=== PATIENT | female | born 1980 | race Caucasian/White ===

== ENCOUNTER 2017-02-08 14:17 | Emergency (ER) | payer SELFPAY ==
[~2017-02-08] VITALS: Ht 167.6 cm; Wt 56.1 kg
[2017-02-08 14:22] VITALS: BP 114/69
== END 2017-02-08 14:48 | disposition home or self-care (01) ==
LOC: ED 14:42
DX: J98.01 Acute bronchospasm (principal)
CPT/HCPCS: 99283

== ENCOUNTER 2017-02-11 11:31 | Emergency (ER) | payer BC, OTHER ==
[~2017-02-11] VITALS: Ht 157.5 cm; Wt 56.4 kg
[2017-02-11 11:34] VITALS: BP 106/66
== END 2017-02-11 12:12 | disposition home or self-care (01) ==
LOC: ED 12:06
DX: J20.8 Acute bronchitis due to other specified organisms (principal); J98.01 Acute bronchospasm; F17.200 Nicotine dependence, unspecified, uncomplicated
CPT/HCPCS: 99281

== ENCOUNTER 2017-04-29 10:36 | Emergency (ER) | payer OTHER ==
[~2017-04-29] VITALS: Ht 157.5 cm; Wt 58.4 kg
[2017-04-29 10:38] VITALS: BP 116/68
== END 2017-04-29 11:20 | disposition home or self-care (01) ==
LOC: ED 11:06
DX: J00 Acute nasopharyngitis [common cold] (principal)
CPT/HCPCS: 99283

== ENCOUNTER 2017-11-05 15:36 | Emergency (ER) | payer OTHER ==
[~2017-11-05] VITALS: Ht 160 cm; Wt 61.1 kg
[2017-11-05 15:38] VITALS: BP 115/74
== END 2017-11-05 16:39 | disposition home or self-care (01) ==
LOC: ED 16:00
DX: J20.8 Acute bronchitis due to other specified organisms (principal); J00 Acute nasopharyngitis [common cold]; B96.89 Other specified bacterial agents as the cause of diseases classified elsewhere; F17.200 Nicotine dependence, unspecified, uncomplicated
CPT/HCPCS: 99283

== ENCOUNTER 2018-03-30 17:36 | Emergency (ER) | payer OTHER ==
[~2018-03-30] VITALS: Ht 157.5 cm; Wt 58.8 kg
[2018-03-30] MEDS ORDERED: ONDANSETRON ODT 4 MG ONE (17:55)
[2018-03-30 18:00] LABS: BASOPHILS # (AUTO) 0.04 x10^3/uL (0-0.1); BASOPHILS % (AUTO) 1 % (0-1); EOSINOPHILS # (AUTO) 0.13 x10^3/uL (0-0.4); EOSINOPHILS % (AUTO) 2 % (1-7); LYMPHOCYTES # (AUTO) 2.03 x10^3/uL (1-3.4); LYMPHOCYTES % (AUTO) 28 % (22-44); MD NO; MEAN CORPUSCULAR HEMOGLOBIN 32.4 pg (27.0-34.8); MEAN CORPUSCULAR HGB CONC 33.9 g/dL (32.4-35.8); MEAN CORPUSCULAR VOLUME 95.6 fL (80-100); MEAN PLATELET VOLUME 8.3 fL (7.4-10.4); MONOCYTES # (AUTO) 0.43 x10^3/uL (0.2-0.8); MONOCYTES % (AUTO) 6 % (2-9); NEUTROPHILS # (AUTO) 4.55 x10^3/uL (1.8-6.8); NEUTROPHILS % (AUTO) 63 % (42-75); PLATELET COUNT 274 x10^3/uL (130-400); RED BLOOD COUNT 4.03 x10^6/uL (3.82-5.3); RED CELL DISTRIBUTION WIDTH 12.7 % (9.6-15.2)
[2018-03-30] MEDS ORDERED: ONDANSETRON ODT 4 MG PO ONE (18:00)
[2018-03-30] MEDS ORDERED: PLEASE ENTER HEIGHT AND WEIGHT MC SCH (18:00)
[2018-03-30 18:10] LABS: ALBUMIN 3.6 g/dL (3.4-5.0); ANION GAP 9 mmol/L (5-15); CALCIUM 8.4 mg/dL (8.5-10.1); CHLORIDE 110 mmol/L (98-107)
[2018-03-30 18:17] LABS: ALANINE AMINOTRANSFERASE 20 U/L (12-78); ALKALINE PHOSPHATASE 64 U/L (45-117); BILIRUBIN,TOTAL 0.3 mg/dL (0.2-1.0); CREATININE 0.96 mg/dL (0.55-1.02); TOTAL PROTEIN 6.8 g/dL (6.4-8.2)
[2018-03-30 18:38] LABS: MICROSCOPIC AUTO
[2018-03-30 18:40] LABS: CULTURE INDICATED? NO
[2018-03-30 19:04] VITALS: BP 98/45
== END 2018-03-30 19:36 | disposition home or self-care (01) ==
LOC: ED 19:30
DX: R11.2 Nausea with vomiting, unspecified (principal); R19.7 Diarrhea, unspecified; F17.210 Nicotine dependence, cigarettes, uncomplicated
CPT/HCPCS: 36415; 71046; 80053; 81001; 83690; 84703; 85025; 99285; Q0162

== ENCOUNTER 2019-07-16 08:07 | Emergency (ER) | payer SELFPAY ==
[~2019-07-16] VITALS: Ht 157.5 cm; Wt 61.2 kg
[2019-07-16] MEDS ORDERED: IBUPROFEN 800 MG TABLET PO ONE (08:30)
[2019-07-16] MEDS ORDERED: IBUPROFEN 800 MG TABLET ONE (08:40)
--- NOTE | 2019-07-16 08:47 | NUR ---
CALLED CT AND INFORMED THEM THAT PATIENT READY FOR CT.
--- NOTE | 2019-07-16 09:11 | NUR ---
PT IN CT.
--- NOTE | 2019-07-16 09:20 | NUR ---
PT RETURNED FROM CT.
--- NOTE | 2019-07-16 09:58 | NUR ---
VELCRO SPLINTS PLACED BILATERAL WRISTS.
[2019-07-16 10:08] VITALS: BP 110/68
== END 2019-07-16 10:10 | disposition home or self-care (01) ==
LOC: ED 10:00
DX: G56.01 Carpal tunnel syndrome, right upper limb (principal); G56.02 Carpal tunnel syndrome, left upper limb; Z98.890 Other specified postprocedural states
CPT/HCPCS: 72125; 99284